=== PATIENT | female | born 1940 | race Caucasian/White ===

== ENCOUNTER 2022-06-06 11:07 | Day surgery (SDC) | payer MEDICARE ==
[2022-05-29 14:31] LABS: BASOPHILS # (AUTO) 0.1 X10'3 (0-0.2); BASOPHILS % (AUTO) 1.2 % (0-1); EOSINOPHILS # (AUTO) 0.2 X10'3 (0-0.9); EOSINOPHILS % (AUTO) 2.3 % (0-6); LYMPHOCYTES # (AUTO) 2.1 X10'3 (1.1-4.8); MEAN CORPUSCULAR VOLUME 102.9 FL (78-98); MEAN PLATELET VOLUME 7.9 FL (7.4-10.4); MONOCYTES # (AUTO) 1.1 X10'3 (0-0.9); MONOCYTES % (AUTO) 11.1 % (2-12); NEUTROPHILS # (AUTO) 6.6 X10'3 (1.8-7.7); NEUTROPHILS % (AUTO) 64.4 % (42-75); PRE OP HEMATOCRIT 37.9 % (35.0-45.0); PRE OP HEMOGLOBIN 12.9 g/dL (12.0-16.0); PRE OP PLATELET COUNT 234 X10'3 (140-440); RED BLOOD COUNT 3.68 X10'6 (4.20-5.60); RED CELL DISTRIBUTION WIDTH 12.6 % (11.5-14.5)
[2022-05-29 14:33] LABS: ALBUMIN 3.8 G/DL (3.4-5.0); ALBUMIN/GLOBULIN RATIO 1.1 (1.1-1.5); ALKALINE PHOSPHATASE 45 IU/L (46-116); BLOOD UREA NITROGEN 17 MG/DL (7-18); BUN/CREATININE RATIO 18.9 (6.6-38.0); CALCIUM 9.3 MG/DL (8.5-10.1); CHLORIDE 105 MMOL/L (99-107); PRE OP ALT 33 U/L (30-65); PRE OP ANION GAP 6 (8-16); PRE OP AST 23 U/L (10-37); PRE OP BILIRUB, TOTAL 0.3 MG/DL (0.0-1.0); PRE OP GLUCOSE 109 MG/DL (70-104); PRE OP POTASSIUM 4.1 MMOL/L (3.4-5.1); PRE OP SODIUM 139 MMOL/L (135-145); TOTAL PROTEIN 7.2 G/DL (6.4-8.2); eGFR 60 ML/MIN
[2022-06-06] VITALS (9 sets, daily range): BP systolic 129–153; BP diastolic 49–76
[~2022-06-06] VITALS: Ht 160 cm; Wt 65.8 kg
[~2022-06-06 11:07] MED LIST: CHOL20004 PO; CYAN100T47 PO; FLUT1AER INH; LOSA100T57 PO; MAGN100T PO; METF-1203 PO; MONT-40 PO; ROSU10TA28 PO; ceFAZolin inj. 2,000 MG in dextrose 5%-water 100 ML IV ONE; famotidine 20mg tablet PO ONE; ringers solution, lacted 1,000 ML IV SCH
[2022-06-06] MEDS ORDERED: epiNEPHrine 1 mg/ml inj ONE (12:35)
[2022-06-06] MEDS ORDERED: LIDOcaine 1% 30ml preserv. free vial ONE (12:35)
[2022-06-06] MEDS ORDERED: TETRACAINE 0.5% 4 ML OPHTHALMIC DROPS ONE (12:35)
[2022-06-06] MEDS ORDERED: midazolam 1 mg/ML 2ml injection ONE (12:56)
[2022-06-06] MEDS ORDERED: fentaNYL/PF 50MCG/1 ML 2ML syringe ONE (12:56)
[2022-06-06] MEDS ORDERED: propofol inj 20 ML IV ONE (13:07)
[2022-06-06] MEDS ORDERED: LIDOcaine 1%/PF 5ML 10 MG/ML VIAL ONE (13:07)
[2022-06-06] MEDS ORDERED: LIDOcaine 1% w/EPI 1:100,000 30ml vial (MDV) IJ ONE (13:16)
[2022-06-06] MEDS ORDERED: morphine 2 MG/ML inj. syringe IV PRN (13:40)
[2022-06-06] MEDS ORDERED: ondansetron/PF 4mg/2ml inj IV PRN (13:40)
[2022-06-06] MEDS ORDERED: ringers solution, lacted 1,000 ML IV SCH (13:40)
--- NOTE | 2022-06-06 14:17 | NUR ---
PATIENT DISCHARGED HOME AFTER WRITTEN AND VERBAL DISCHARGE INSTRUCTIONS. PATIENT GAVE VERBAL UNDERSTANDING OF INSTRUCTIONS GIVEN. PATIENT LEFT FACILITY VIA WHEELCHAIR WITH RN. Addendum: 06/06/22 at 1624 by Magrareth Kothari RN Amended: Links added.
--- NOTE | 2022-06-06 14:25 | NUR ---
Received from OR via [facility] IN STABLE CONDITION , accompanied by Anesthesiologist and OPERATIONS EXECUTIVE report given by OPERATIONS EXECUTIVE AND Anesthesiolgist. Addendum: 06/06/22 at 1427 by Margareth Kothari RN Amended: Links added.
== END 2022-06-06 15:13 | disposition home or self-care (01) ==
LOC: PAS 11:07
PROVIDERS: ATTEND Specialist
DX: H02.831 Dermatochalasis of right upper eyelid (principal); H02.834 Dermatochalasis of left upper eyelid; H54.3 Unqualified visual loss, both eyes; E11.9 Type 2 diabetes mellitus without complications; I10 Essential (primary) hypertension; E78.00 Pure hypercholesterolemia, unspecified; J43.9 Emphysema, unspecified; M19.90 Unspecified osteoarthritis, unspecified site; Z98.890 Other specified postprocedural states; Z79.84 Long term (current) use of oral hypoglycemic drugs; Z79.899 Other long term (current) drug therapy; Z72.89 Other problems related to lifestyle; Z87.891 Personal history of nicotine dependence
CPT/HCPCS: 15823; 36415; 80053; 82948; 85025; 93005; A6402; J0171; J0690; J2250; J2704; J3010; J3490; J7030; J7060; J7120; Z7506; Z7512; A4215; A6410; A6449

== ENCOUNTER 2023-05-27 10:28 | Inpatient (IN) | payer MEDICARE ==
[~2023-05-27] VITALS: Ht 160 cm; Wt 59.0 kg
[~2023-05-27 10:28] MED LIST changes: -LOSA100T57 PO; +LOSA100T58 PO; -ceFAZolin inj. 2,000 MG in dextrose 5%-water 100 ML IV ONE; -famotidine 20mg tablet PO ONE; -ringers solution, lacted 1,000 ML IV SCH
[2023-05-27 11:22] LABS: BASOPHILS % (AUTO) 0.3 % (0-1); EOSINOPHILS # (AUTO) 0.1 X10'3 (0-0.9); EOSINOPHILS % (AUTO) 0.6 % (0-6); HEMATOCRIT 37.6 % (35.0-45.0); HEMOGLOBIN 12.7 g/dl (12.0-16.0); LYMPHOCYTES # (AUTO) 1.3 X10'3 (1.1-4.8); LYMPHOCYTES % (AUTO) 10.6 % (21-51); MEAN CORPUSCULAR HEMOGLOBIN 34.6 PG (27.0-31.0); MEAN CORPUSCULAR HGB CONC 33.7 g/dL (33.0-36.5); MEAN CORPUSCULAR VOLUME 102.6 FL (78-98); MEAN PLATELET VOLUME 7.8 FL (7.4-10.4); MONOCYTES # (AUTO) 1.5 X10'3 (0-0.9); MONOCYTES % (AUTO) 12.5 % (2-12); NEUTROPHILS # (AUTO) 9.3 X10'3 (1.8-7.7); PLATELET COUNT 208 X10'3 (140-440); RED BLOOD COUNT 3.66 X10'6 (4.20-5.60); RED CELL DISTRIBUTION WIDTH 12.5 % (11.5-14.5); WHITE BLOOD COUNT 12.2 X10'3 (4.5-11.0)
[2023-05-27 11:33] LABS: ALBUMIN 3.1 G/DL (3.4-5.0); ANION GAP 7 (8-16); APTT 28 SECONDS (22-32); BLOOD UREA NITROGEN 14 MG/DL (7-18); BUN/CREATININE RATIO 23.7 (10.0-20.0); CALCIUM 8.6 MG/DL (8.5-10.1); CHLORIDE 103 MMOL/L (99-107); CREATININE 0.59 MG/DL (0.40-0.90); GLUCOSE 109 MG/DL (70-104); POTASSIUM 3.8 MMOL/L (3.5-5.1); PROTHROMBIN TIME 10.3 SECONDS (9.0-12.0); SODIUM 136 MMOL/L (135-145); TOTAL CARBON DIOXIDE 26.1 MMOL/L (24-32); eCRCL 62 ML/MIN; eGFR > 90 ML/MIN
[2023-05-27] MEDS ORDERED: ondansetron/PF 4mg/2ml inj IV ONE (11:40)
[2023-05-27] MEDS ORDERED: acetaminophen 325mg tablet PO PRN (13:35)
[2023-05-27] MEDS ORDERED: magnesium 4gm in 100ml NS 100 ML IV PRN (13:35)
[2023-05-27] MEDS ORDERED: dextrose 50%-water 50ml dispensing syringe IV PRN ×2 (13:35)
[2023-05-27] MEDS ORDERED: bisacodyl 10mg suppository rectal RC PRN (13:35)
[2023-05-27] MEDS ORDERED: HYDROmorphone/PF 0.2 MG/ML SYRINGE IV PRN (13:35)
[2023-05-27] MEDS ORDERED: MESSAGE TO PHARMACY PO ONE (13:35)
[2023-05-27] MEDS ORDERED: magnesium 2GM in 50ml NS 50 ML IV PRN (13:35)
[2023-05-27] MEDS ORDERED: mag hydrox/Alum hydrox/simeth 30ml oral suspension PO PRN (13:35)
[2023-05-27] MEDS ORDERED: insulin Lispro (HumaLOG) vial - multi-dose SQ SCH (13:35)
[2023-05-27] MEDS ORDERED: potassium Cl 40MEQ/1/2NS 520ml 520 ML IV PRN (13:35)
[2023-05-27] MEDS ORDERED: potassium Cl 20 mEq SR tablet PO PRN ×2 (13:35)
[2023-05-27] MEDS ORDERED: DEXTROSE 15 GM of carb/4 tabs (each vial/BOTTLE has 4 tablets) PO PRN ×2 (13:35)
[2023-05-27] MEDS ORDERED: HYDROmorphone inj. 0.5 MG/0.5 ML DISP.SYRIN IV PRN (13:35)
[2023-05-27] MEDS ORDERED: HYDROcodone/acetaminophen 5mg/325mg tablet PO PRN (13:35)
[2023-05-27] MEDS ORDERED: docusate sod 100mg capsule PO PRN (13:35)
[2023-05-27] MEDS ORDERED: ondansetron/PF 4mg/2ml inj IV PRN (13:35)
[2023-05-27] MEDS ORDERED: glucagon, human recombinant 1mg kit SUBCUT PRN (13:35)
[2023-05-27] MEDS: normal saline 1000ml 1,000 ML IV SCH (14:03)
[2023-05-27] MEDS ORDERED: albuterol 2.5 MG/3 ML nebule NEB PRN (15:20)
[2023-05-27 18:25] VITALS: BP 150/70; PULSE 86; RESP 20; TEMP 97.6; O2SAT 95
[2023-05-27] MEDS: K and/or MAG REPLACEMENT MC SCH (20:00)
[2023-05-27] MEDS: heparin, porcine 5000 units/ml vial SQ SCH (20:18)
[2023-05-27] MEDS: budesonide 0.5mg/2ml UD nebule IH SCH (20:35)
[2023-05-27 20:36] VITALS: PULSE 67; RESP 16; O2SAT 93
[2023-05-27 20:42] VITALS: PULSE 81; RESP 16
[2023-05-27] MEDS: insulin glargine (Lantus) pen - multi-dose SQ SCH (21:00)
[2023-05-27 22:00] VITALS: BP 125/56; PULSE 79; RESP 13; TEMP 97.1; O2SAT 95
[2023-05-28] VITALS (9 sets, daily range): BP systolic 110–131; BP diastolic 53–62; PULSE 62–79; RESP 15–18; TEMP 97–97.5; O2SAT 95–96
[2023-05-28] MEDS: normal saline 1000ml 1,000 ML IV SCH ×2 (02:04→22:08)
[2023-05-28] MEDS ORDERED: HYDROmorphone inj. 0.5 MG/0.5 ML DISP.SYRIN IV PRN (05:10)
[2023-05-28] MEDS ORDERED: HYDROmorphone 1 mg/ml syringe IV PRN (05:10)
[2023-05-28 06:06] LABS: BASOPHILS # (AUTO) 0.1 X10'3 (0-0.2); BASOPHILS % (AUTO) 0.9 % (0-1); EOSINOPHILS # (AUTO) 0.3 X10'3 (0-0.9); EOSINOPHILS % (AUTO) 2.5 % (0-6); HEMATOCRIT 36.8 % (35.0-45.0); HEMOGLOBIN 12.6 g/dl (12.0-16.0); LYMPHOCYTES # (AUTO) 1.3 X10'3 (1.1-4.8); LYMPHOCYTES % (AUTO) 12.4 % (21-51); MEAN CORPUSCULAR HEMOGLOBIN 35.3 PG (27.0-31.0); MEAN CORPUSCULAR HGB CONC 34.1 g/dL (33.0-36.5); MEAN CORPUSCULAR VOLUME 103.5 FL (78-98); MEAN PLATELET VOLUME 8.1 FL (7.4-10.4); MONOCYTES # (AUTO) 1.2 X10'3 (0-0.9); MONOCYTES % (AUTO) 11.7 % (2-12); NEUTROPHILS # (AUTO) 7.5 X10'3 (1.8-7.7); NEUTROPHILS % (AUTO) 72.5 % (42-75); PLATELET COUNT 200 X10'3 (140-440); RED BLOOD COUNT 3.56 X10'6 (4.20-5.60); RED CELL DISTRIBUTION WIDTH 12.6 % (11.5-14.5); WHITE BLOOD COUNT 10.4 X10'3 (4.5-11.0)
[2023-05-28 06:19] LABS: ALANINE AMINOTRANSFERASE 16 U/L (12-78); ALBUMIN 2.7 G/DL (3.4-5.0); ALBUMIN/GLOBULIN RATIO 0.8 (1.1-1.5); ALKALINE PHOSPHATASE 41 IU/L (46-116); ANION GAP 7 (8-16); ASPARTATE AMINO TRANSFERASE 25 U/L (10-37); BILIRUBIN,TOTAL 0.4 MG/DL (0.1-1.0); BLOOD UREA NITROGEN 11 MG/DL (7-18); BUN/CREATININE RATIO 17.5 (10.0-20.0); CALCIUM 8.6 MG/DL (8.5-10.1); CHLORIDE 106 MMOL/L (99-107); CREATININE 0.63 MG/DL (0.40-0.90); GLUCOSE 110 MG/DL (70-104); SODIUM 138 MMOL/L (135-145); TOTAL CARBON DIOXIDE 25.4 MMOL/L (24-32); TOTAL PROTEIN 6.3 G/DL (6.4-8.2); eCRCL 58 ML/MIN; eGFR > 90 ML/MIN
[2023-05-28] MEDS: heparin, porcine 5000 units/ml vial SQ SCH ×2 (08:00→20:44)
[2023-05-28] MEDS: K and/or MAG REPLACEMENT MC SCH ×2 (08:00→20:00)
[2023-05-28] MEDS: HYDROcodone/acetaminophen 10/325mg tab PO PRN ×3 (08:47→21:58)
[2023-05-28] MEDS: ipratropium/albuterol 3ml nebule NEB PRN (09:07)
[2023-05-28] MEDS: budesonide 0.5mg/2ml UD nebule IH SCH ×2 (09:08→21:15)
[2023-05-28] MEDS: insulin glargine (Lantus) pen - multi-dose SQ SCH (22:07)
[2023-05-29] VITALS (25 sets, daily range): BP systolic 95–169; BP diastolic 43–108; PULSE 64–102; RESP 12–17; TEMP 97–98.3; O2SAT 91–100
[2023-05-29] MEDS: normal saline 1000ml 1,000 ML IV SCH ×2 (04:24→19:46)
[2023-05-29 06:11] LABS: BASOPHILS # (AUTO) 0.1 X10'3 (0-0.2); BASOPHILS % (AUTO) 1.1 % (0-1); EOSINOPHILS # (AUTO) 0.2 X10'3 (0-0.9); EOSINOPHILS % (AUTO) 2.5 % (0-6); HEMATOCRIT 34.5 % (35.0-45.0); HEMOGLOBIN 11.9 g/dl (12.0-16.0); LYMPHOCYTES # (AUTO) 1.2 X10'3 (1.1-4.8); LYMPHOCYTES % (AUTO) 12.5 % (21-51); MEAN CORPUSCULAR HEMOGLOBIN 35.7 PG (27.0-31.0); MEAN CORPUSCULAR HGB CONC 34.6 g/dL (33.0-36.5); MEAN CORPUSCULAR VOLUME 103.4 FL (78-98); MEAN PLATELET VOLUME 8.1 FL (7.4-10.4); MONOCYTES # (AUTO) 1.2 X10'3 (0-0.9); NEUTROPHILS # (AUTO) 6.8 X10'3 (1.8-7.7); NEUTROPHILS % (AUTO) 70.9 % (42-75); PLATELET COUNT 177 X10'3 (140-440); RED BLOOD COUNT 3.33 X10'6 (4.20-5.60); RED CELL DISTRIBUTION WIDTH 12.9 % (11.5-14.5); WHITE BLOOD COUNT 9.6 X10'3 (4.5-11.0)
[2023-05-29 06:25] LABS: ALANINE AMINOTRANSFERASE 19 U/L (12-78); ALBUMIN 2.7 G/DL (3.4-5.0); ALBUMIN/GLOBULIN RATIO 0.9 (1.1-1.5); ALKALINE PHOSPHATASE 36 IU/L (46-116); ANION GAP 9 (8-16); ASPARTATE AMINO TRANSFERASE 14 U/L (10-37); BILIRUBIN,TOTAL 0.3 MG/DL (0.1-1.0); BLOOD UREA NITROGEN 11 MG/DL (7-18); BUN/CREATININE RATIO 19.3 (10.0-20.0); CALCIUM 8.2 MG/DL (8.5-10.1); CHLORIDE 107 MMOL/L (99-107); CREATININE 0.57 MG/DL (0.40-0.90); GLUCOSE 121 MG/DL (70-104); MAGNESIUM 1.9 MG/DL (1.5-2.4); POTASSIUM 3.9 MMOL/L (3.5-5.1); SODIUM 141 MMOL/L (135-145); TOTAL CARBON DIOXIDE 25.1 MMOL/L (24-32); TOTAL PROTEIN 5.6 G/DL (6.4-8.2); eCRCL 64 ML/MIN; eGFR > 90 ML/MIN
[2023-05-29] MEDS ORDERED: morphine 4 MG/ML inj SYRINge IV PRN (06:45)
[2023-05-29] MEDS ORDERED: hydrALAZINE 20mg/ml inj. IV PRN (06:45)
[2023-05-29] MEDS ORDERED: proCHLORperazine 10 MG/2 ml inj IV PRN (06:45)
[2023-05-29] MEDS ORDERED: acetaminophen 1,000mg/100ml IV 100 ML IV ONE (06:45)
[2023-05-29] MEDS ORDERED: ondansetron/PF 4mg/2ml inj IV PRN (06:45)
[2023-05-29] MEDS ORDERED: morphine 2 MG/ML inj. syringe IV PRN (06:45)
[2023-05-29] MEDS ORDERED: meperidine/PF 25mg/ml syringe IV PRN ×3 (06:45)
[2023-05-29] MEDS ORDERED: ringers solution, lacted 1,000 ML IV SCH (06:45)
[2023-05-29] MEDS ORDERED: labetalol 20mg/4ml (5mg/ml) syringe IV PRN (06:45)
[2023-05-29] MEDS ORDERED: fentaNYL/PF 50MCG/1 ML 2ML syringe ONE (06:48)
[2023-05-29] MEDS ORDERED: sevoflurane 250ml liquid IH ONE (06:48)
[2023-05-29] MEDS ORDERED: midazolam 1 mg/ML 2ml injection ONE (06:51)
[2023-05-29 06:58] LABS: HEMOGLOBIN A1C 6.6 % (4.5-6.2)
[2023-05-29] MEDS ORDERED: ceFAZolin 1000mg inj ONE ×2 (07:02→07:03)
[2023-05-29] MEDS ORDERED: ondansetron/PF 4mg/2ml inj ONE (07:02)
[2023-05-29] MEDS ORDERED: dexamethasone sod phosphate 4mg/ml inj. ONE (07:02)
[2023-05-29] MEDS ORDERED: LIDOcaine 2% (20mg/ml) 5ml vial ONE (07:03)
[2023-05-29] MEDS ORDERED: propofol inj 20 ML IV ONE (07:03)
[2023-05-29] MEDS: K and/or MAG REPLACEMENT MC SCH ×2 (08:00→20:00)
[2023-05-29] MEDS: heparin, porcine 5000 units/ml vial SQ SCH ×2 (08:00→21:47)
[2023-05-29] MEDS: ipratropium/albuterol 3ml nebule NEB PRN ×2 (10:30→20:50)
[2023-05-29] MEDS: budesonide 0.5mg/2ml UD nebule IH SCH ×2 (10:30→20:50)
[2023-05-29] MEDS: HYDROcodone/acetaminophen 10/325mg tab PO PRN (15:57)
[2023-05-29] MEDS: cefazolin 2gm/D5W 100mL 100 ML IV SCH ×2 (16:05→23:27)
[2023-05-29] MEDS: insulin glargine (Lantus) pen - multi-dose SQ SCH (21:00)
[2023-05-29] MEDS: metFORMIN 500mg tablet PO SCH (21:46)
[2023-05-29] MEDS: acetaminophen 325mg tablet PO PRN (23:32)
[2023-05-30 02:00] VITALS: BP 140/69; PULSE 67; RESP 18; TEMP 97.5; O2SAT 98
[2023-05-30] MEDS: acetaminophen 325mg tablet PO PRN (05:21)
[2023-05-30 06:00] VITALS: BP 137/69; PULSE 70; RESP 18; TEMP 97.1; O2SAT 98
[2023-05-30 06:20] LABS: BASOPHILS % (AUTO) 0.4 % (0-1); EOSINOPHILS # (AUTO) 0.1 X10'3 (0-0.9); EOSINOPHILS % (AUTO) 0.6 % (0-6); HEMATOCRIT 33.6 % (35.0-45.0); HEMOGLOBIN 11.4 g/dl (12.0-16.0); LYMPHOCYTES # (AUTO) 1.2 X10'3 (1.1-4.8); LYMPHOCYTES % (AUTO) 10.6 % (21-51); MEAN CORPUSCULAR HEMOGLOBIN 34.9 PG (27.0-31.0); MEAN CORPUSCULAR HGB CONC 33.8 g/dL (33.0-36.5); MEAN CORPUSCULAR VOLUME 103.2 FL (78-98); MEAN PLATELET VOLUME 8.1 FL (7.4-10.4); MONOCYTES # (AUTO) 1.3 X10'3 (0-0.9); MONOCYTES % (AUTO) 11.3 % (2-12); NEUTROPHILS # (AUTO) 9.1 X10'3 (1.8-7.7); NEUTROPHILS % (AUTO) 77.1 % (42-75); PLATELET COUNT 188 X10'3 (140-440); RED BLOOD COUNT 3.26 X10'6 (4.20-5.60); WHITE BLOOD COUNT 11.8 X10'3 (4.5-11.0)
[2023-05-30 06:25] LABS: ALANINE AMINOTRANSFERASE 18 U/L (12-78); ALBUMIN 2.5 G/DL (3.4-5.0); ALBUMIN/GLOBULIN RATIO 0.9 (1.1-1.5); ALKALINE PHOSPHATASE 33 IU/L (46-116); ANION GAP 9 (8-16); ASPARTATE AMINO TRANSFERASE 18 U/L (10-37); BILIRUBIN,TOTAL 0.2 MG/DL (0.1-1.0); BLOOD UREA NITROGEN 11 MG/DL (7-18); BUN/CREATININE RATIO 19.3 (10.0-20.0); CALCIUM 7.9 MG/DL (8.5-10.1); CHLORIDE 110 MMOL/L (99-107); CREATININE 0.57 MG/DL (0.40-0.90); GLUCOSE 118 MG/DL (70-104); MAGNESIUM 2.1 MG/DL (1.5-2.4); POTASSIUM 3.9 MMOL/L (3.5-5.1); SODIUM 143 MMOL/L (135-145); TOTAL CARBON DIOXIDE 23.9 MMOL/L (24-32); TOTAL PROTEIN 5.3 G/DL (6.4-8.2); eCRCL 64 ML/MIN; eGFR > 90 ML/MIN
[2023-05-30 07:44] VITALS: PULSE 72; RESP 18; O2SAT 98
[2023-05-30] MEDS: budesonide 0.5mg/2ml UD nebule IH SCH (07:44)
[2023-05-30] MEDS: metFORMIN 500mg tablet PO SCH (07:45)
[2023-05-30] MEDS: heparin, porcine 5000 units/ml vial SQ SCH (07:45)
[2023-05-30 07:50] VITALS: PULSE 81; RESP 18
[2023-05-30 08:00] VITALS: RESP 18; O2SAT 98
[2023-05-30] MEDS ORDERED: magnesium hydroxide 30ml (MOM) UD suspension PO ONE (08:55)
[2023-05-30 10:00] VITALS: BP 124/57; PULSE 92; RESP 16; TEMP 98.1; O2SAT 95
[2023-05-30] MEDS: HYDROcodone/acetaminophen 10/325mg tab PO PRN (12:11)
[2023-05-30] MEDS ORDERED: HYDR-3972 PO ×2 (12:17)
[2023-05-30] MEDS ORDERED: ASPI-100 PO (13:23)
[2023-05-30] MEDS ORDERED: HYDR-3973 PO (13:24)
== END 2023-05-30 14:30 | disposition home or self-care (01) | DRG 481 ==
LOC: ER 10:29 → ED HOLD 13:39 → ORTHO 4S 18:22
PROVIDERS: ADMIT Family Medicine; ATTEND Family Medicine
PROC: 0QH634Z Insertion of Internal Fixation Device into Right Upper Femur, Percutaneous Approach (ICD-10-PCS; principal; 2023-05-29 06:48)
DX: S72.011A Unspecified intracapsular fracture of right femur, initial encounter for closed fracture (principal); E44.0 Moderate protein-calorie malnutrition; I10 Essential (primary) hypertension; E11.9 Type 2 diabetes mellitus without complications; J44.9 Chronic obstructive pulmonary disease, unspecified; E78.5 Hyperlipidemia, unspecified; S51.011A Laceration without foreign body of right elbow, initial encounter; S01.01XA Laceration without foreign body of scalp, initial encounter; S09.90XA Unspecified injury of head, initial encounter; F10.90 Alcohol use, unspecified, uncomplicated; D72.829 Elevated white blood cell count, unspecified; W18.39XA Other fall on same level, initial encounter; Z79.82 Long term (current) use of aspirin; Z79.84 Long term (current) use of oral hypoglycemic drugs; Z79.899 Other long term (current) drug therapy; Z87.891 Personal history of nicotine dependence; Y93.89 Activity, other specified; Y92.89 Other specified places as the place of occurrence of the external cause; Y99.8 Other external cause status; Z80.3 Family history of malignant neoplasm of breast; Z90.49 Acquired absence of other specified parts of digestive tract; Z68.23 Body mass index [BMI] 23.0-23.9, adult
CPT/HCPCS: 36415; 71045; 73501; 73502; 73700; 76000; 80048; 80053; 82948; 83036; 83735; 85025; 85610; 85730; 87081; 93005; 94640; 94760; 97116; 97161; 97530; 99285; A4615; A4618; A5200; A6222; A6223; A6258; A6449; A7000; C1713; G0378; J0131; J0690; J1100; J1170; J1644; J1815; J2175; J2250; J2405; J2704; J3010; J3490; J7030; J7120